=== PATIENT | male | born 1985 | race Two or more races ===

== ENCOUNTER 2018-03-26 09:41 | Emergency (ER) | payer SELFPAY ==
[~2018-03-26] VITALS: Ht 167.6 cm; Wt 63.5 kg
[2018-03-26] MEDS ORDERED: PANTOPRAZOLE 40 MG TABLET.DR. PO ONE (10:00)
[2018-03-26] MEDS ORDERED: HYDROcodone/APAP 5/325MG 1 TAB TABLET PO ONE (10:00)
[2018-03-26] MEDS ORDERED: ONDANSETRON ODT 4 MG TAB.RAPDIS. PO ONE (10:00)
--- NOTE | 2018-03-26 10:21 | PHYS DOC ---
Adult General Chief Complaint Chief Complaint: GI PROBLEM HPI HPI Patient is a 32 year old male presents to the ED complaining of epigastric pain since last night. States he started to have upper abdominal pain last night before bed. Describes the pain as burning. Rates the pain as 6/10. Associated symptoms include nausea. Patient has taken any medications at home. Denies shortness of breath, cough, headache, fever, diarrhea, headache, neck pain, blood in stool, or dizziness. Review of Systems Review of Systems Constitutional: Denies fever or chills [] Eyes: Denies change in visual acuity, redness, or eye pain [] HENT: Denies nasal congestion or sore throat [] Respiratory: Denies cough or shortness of breath [] Cardiovascular: No additional information not addressed in HPI [] GI: Complains of abdominal pain and nausea. Denies vomiting, bloody stools or diarrhea [] : Denies dysuria or hematuria [] Musculoskeletal: Denies back pain or joint pain [] Integument: Denies rash or skin lesions [] Neurologic: Denies headache, focal weakness or sensory changes [] All other systems were reviewed and found to be within normal limits, except as documented in this note. Current Medications Current Medications Current Medications Medications (Trade) Dose Ordered Sig/Hiro Start Time Stop Time Status Last Admin Dose Admin Acetaminophen/ Hydrocodone Bitart (Lortab 5/325) 1 tab 1X ONCE 03/26/18 10:00 03/26/18 10:04 DC 03/26/18 10:12 1 TAB Ondansetron HCl (Zofran Odt) 4 mg 1X ONCE 03/26/18 10:00 03/26/18 10:04 DC 03/26/18 10:12 4 MG Pantoprazole Sodium (Protonix) 40 mg 1X ONCE 03/26/18 10:00 03/26/18 10:04 DC 03/26/18 10:12 40 MG Allergies Allergies Allergies Coded Allergies Type Severity Reaction Last Updated Verified No Known Drug Allergies 03/26/18 No Physical Exam Physical Exam Constitutional: Well developed, well nourished, no acute distress, non-toxic appearance. [] HENT: Normocephalic, atraumatic, oropharynx moist Eyes: PERRLA, EOMI, conjunctiva normal, no discharge. [] Neck: Normal range of motion, no tenderness, supple, no stridor. [] Cardiovascular:Heart rate regular rhythm, no murmur [] Lungs & Thorax: Bilateral breath sounds clear to auscultation [] Abdomen: Bowel sounds normal, soft, mild epigastric tenderness, no masses, no pulsatile masses. [] Skin: Warm, dry, no erythema, no rash. [] Back: No tenderness, no CVA tenderness. [] Extremities: No tenderness, no cyanosis, no clubbing, ROM intact, no edema. [] Neurologic: Alert and oriented X 3, normal motor function, normal sensory function, no focal deficits noted. [] Psychologic: Affect normal, judgement normal, mood normal. [] Current Patient Data Vital Signs Vital Signs Date Time Temp Pulse Resp B/P (MAP) Pulse Ox O2 Delivery O2 Flow Rate FiO2 03/26/18 10:12 14 99 Room Air 03/26/18 09:47 97.6 79 142/82 (102) 97.6 EKG EKG EKG shows NSR at 77 BPM. No STEMI.[] Radiology/Procedures Radiology/Procedures PROCEDURE: CHEST AP ONLY Examination: CHEST AP ONLY History: CHEST PAIN TODAY Comparison/Correlation: None Findings: Portable frontal view of the chest was obtained. Heart size and pulmonary vasculature are normal. No infiltrate or pleural effusion. Bony structures are unremarkable. No pneumothorax. Impression: No active disease.[] Course & Med Decision Making Course & Med Decision Making Pertinent Labs and Imaging studies reviewed. (See chart for details) []Discussed imaging findings with patient. Patient's pain resolved with medicine given in the ED. States he is feeling much better. On reexamination, abdomen is soft nontender nondistended. No peritoneal signs. Tolerating by mouth. Discussed symptomatic treatment at home. Discussed follow-up and reasons to return to the ED. Patient understands and agrees with plan. Family at bedside. Dragon Disclaimer Dragon Disclaimer This electronic medical record was generated, in whole or in part, using a voice recognition dictation system. Departure Departure Impression: Primary Impression: Abdominal pain Disposition: HOME, SELF-CARE Condition: IMPROVED Referrals: NO PCP (PCP) GÓMEZ BALL DO Patient Instructions: Abdominal Pain, Gastroesophageal Reflux Disease, Adult JODI ALDRIDGE Mar 26, 2018 10:21
--- NOTE | 2018-03-26 10:38 | RAD ---
Examination: CHEST AP ONLY History: CHEST PAIN TODAY Comparison/Correlation: None Findings: Portable frontal view of the chest was obtained. Heart size and pulmonary vasculature are normal. No infiltrate or pleural effusion. Bony structures are unremarkable. No pneumothorax. Impression: No active disease. Electronically signed by: Jermaine Villalobos MD (03/26/2018 10:33 AM) [id number]
--- NOTE | 2018-03-26 11:14 | EKG ---
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
[2018-03-26 11:29] VITALS: BP 101/60
== END 2018-03-26 11:29 | disposition home or self-care (01) ==
LOC: ER 09:41
DX: R10.13 Epigastric pain (principal); R11.0 Nausea
CPT/HCPCS: 71045; 93005; 99284; Q0162

== ENCOUNTER 2019-02-17 21:20 | Emergency (ER) | payer SELFPAY ==
[~2019-02-17] VITALS: Ht 167.6 cm; Wt 63.5 kg
[2019-02-17] MEDS ORDERED: CEPH-264 PO (21:41)
--- NOTE | 2019-02-17 21:42 | PHYS DOC ---
Past Medical History Past Medical History: No Pertinent History Past Surgical History: No Surgical History Alcohol Use: None Drug Use: None Adult General Chief Complaint Chief Complaint: ITCHING HPI HPI Patient is a 33 year old male that presents with left eye swelling, rash to right lip, rash to arms since yesterday. Has gotten worse since yesterday. Patient took 2 Benadryl yesterday which did not help. Patient states his pain is 0 out of 10 in severity but he states it is itches. Review of Systems Review of Systems Constitutional: Denies fever or chills [] Eyes: Reports L eye swelling. HENT: Denies nasal congestion or sore throat [] Respiratory: Denies cough or shortness of breath [] Cardiovascular: No additional information not addressed in HPI [] GI: Denies abdominal pain, nausea, vomiting, bloody stools or diarrhea [] : Denies dysuria or hematuria [] Musculoskeletal: Denies back pain or joint pain [] Integument: Reports rash Neurologic: Denies headache, focal weakness or sensory changes [] Endocrine: Denies polyuria or polydipsia [] Complete systems were reviewed and found to be within normal limits, except as documented in this note. Allergies Allergies Allergies Coded Allergies Type Severity Reaction Last Updated Verified No Known Drug Allergies 03/26/18 No Physical Exam Physical Exam Constitutional: Well developed, well nourished, no acute distress, non-toxic appearance. [] HENT: Normocephalic, atraumatic, bilateral external ears normal, oropharynx moist, no oral exudates, nose normal. [] Eyes: L eye swelling and erythema. Neck: Normal range of motion, no tenderness, supple, no stridor. [] Cardiovascular:Heart rate regular rhythm, no murmur [] Lungs & Thorax: Bilateral breath sounds clear to auscultation [] Abdomen: Bowel sounds normal, soft, no tenderness, no masses, no pulsatile masses. [] Skin: maculopapular rash to lip, and arms. Back: No tenderness, no CVA tenderness. [] Extremities: No tenderness, no cyanosis, no clubbing, ROM intact, no edema. [] Neurologic: Alert and oriented X 3, normal motor function, normal sensory function, no focal deficits noted. [] Psychologic: Affect normal, judgement normal, mood normal. [] EKG EKG [] Radiology/Procedures Radiology/Procedures [] Course & Med Decision Making Course & Med Decision Making Pertinent Labs and Imaging studies reviewed. (See chart for details) He appears to have poison felipa on the lips and arm. Appears to have the preseptal cellulitis in the left orbital area from scratching the skin last night while sleeping. Dragon Disclaimer Dragon Disclaimer This electronic medical record was generated, in whole or in part, using a voice recognition dictation system. Departure Departure Impression: Primary Impression: Poison felipa dermatitis Additional Impression: Cellulitis Disposition: HOME, SELF-CARE Condition: STABLE Referrals: NO PCP (PCP) Patient Instructions: Cellulitis, Poison Felipa Additional Instructions: Thank you for visiting [facility]. We appreciate you trusting us with your care. If any additional problems come up don't hesitate to return to visit us. Please follow up with your primary care provider so they can plan additional care if needed and know about the problem that you had. If symptoms worsen come back to the Emergency Department. Any concerning symptoms that start such as chest pain, shortness of air, weakness or numbness on one side of the body, running high fevers or any other concerning symptoms return to the ER. Scripts Cephalexin (KEFLEX) 500 Mg Capsule 500 MG PO QID for 7 Days, #28 CAP Prov: GÓMEZ MARCANO APRN 02/17/19 Problem Qualifiers Additional Impression: Cellulitis Site of cellulitis: face Qualified Codes: L03.211 - Cellulitis of face GÓMEZ MARCANO APRN Feb 17, 2019 21:42
[2019-02-17] MEDS ORDERED: DEXAMETHASONE 4 MG TABLET PO ONE (21:45)
[2019-02-17 21:48] VITALS: BP 118/72
[2019-02-17] MEDS ORDERED: CEPHALEXIN 250 MG CAPSULE. PO ONE (22:00)
== END 2019-02-17 22:16 | disposition home or self-care (01) ==
LOC: ER 21:20
DX: L23.7 Allergic contact dermatitis due to plants, except food (principal); L03.211 Cellulitis of face
CPT/HCPCS: 99283; J8540